=== PATIENT | female | born 1975 | race Caucasian/White ===

== ENCOUNTER 2016-07-04 15:03 | Inpatient (IN) | payer OTHER ==
[~2016-07-04] VITALS: Ht 168 cm; Wt 79.9 kg
[2016-07-04] MEDS ORDERED: PREN1TAB26 PO (15:09)
[2016-07-04 18:44] VITALS: BP 113/61
[2016-07-04] MEDS ORDERED: INFLUENZA VIRUS VACCINE QVS 2016-17 (3YR+)/PF 60 MCG/0.5 ML SYRINGE IM ONE (19:00)
[2016-07-04] MEDS ORDERED: OXYTOCIN 30 UNITS/LACT RINGERS 500 ML IV PRN (19:06)
[2016-07-04] MEDS ORDERED: RINGERS SOLUTION,LACTATED 1,000 ML IV PRN (19:06)
[2016-07-04] MEDS ORDERED: OXYTOCIN 30 UNITS/LACT RINGERS 500 ML IV ONE (19:06)
[2016-07-04] MEDS ORDERED: FentaNYL CITRATE-PF 100 MCG/2 ML VIAL IVP PRN (19:15)
[2016-07-04] MEDS ORDERED: CITRIC ACID/SODIUM CITRATE 30 ML SOLUTION UDCUP PO PRN (19:15)
[2016-07-04] MEDS ORDERED: METOCLOPRAMIDE HCL 5 MG/ML 2 ML VIAL IVP PRN (19:15)
[2016-07-04] MEDS: RINGERS SOLUTION,LACTATED 1,000 ML IV SCH ×4 (19:23→23:23)
[2016-07-04 19:58] LABS: BASOPHILS % (AUTO) 0.2 % (0.0-2.0); EOSINOPHILS % (AUTO) 0.2 % (1.0-6.0); HEMATOCRIT 33.4 % (36-46); LYMPHOCYTES # (AUTO) 1.8 K/uL (1.0-4.8); LYMPHOCYTES % (AUTO) 23.5 % (22.0-44.0); MEAN CORPUSCULAR HEMOGLOBIN 27.8 pg (26.0-34.0); MEAN CORPUSCULAR HGB CONC 32.9 G/dL (31.0-37.0); MEAN CORPUSCULAR VOLUME 84 fL (80-100); MONOCYTES # (AUTO) 0.5 K/uL (0.1-1.0); MONOCYTES % (AUTO) 5.9 % (2.0-9.0); NEUTROPHILS # (AUTO) 5.4 K/uL (1.8-7.7); NEUTROPHILS % (AUTO) 70.2 % (40.0-70.0); RED BLOOD CELL COUNT(AUTO) 3.95 MIL/uL (4.00-5.20); RED CELL DISTRIBUTION WIDTH 13.9 % (11.5-14.5); WHITE BLOOD COUNT (AUTO) 7.7 K/uL (4.5-11.0)
[2016-07-04] MEDS ORDERED: LIDOCAINE HCL/PF 2% 5 ML VIAL ONE (20:19)
[2016-07-04] MEDS ORDERED: FentaNYL/BUPIV 0.125%/NS/PF 200 ML ED ONE (20:19)
[2016-07-04] MEDS: OXYGEN THERAPY IH SCH (21:40)
[2016-07-05] MEDS ORDERED: FentaNYL/BUPIV 0.125%/NS/PF 200 ML ED PRN (02:23)
[2016-07-05] MEDS ORDERED: ONDANSETRON HCL 4 MG/2 ML VIAL IVP PRN (02:30)
[2016-07-05] MEDS ORDERED: DiphenhydrAMINE HCL 50 MG/ML VIAL IVP PRN (02:30)
[2016-07-05] MEDS ORDERED: NALBUPHINE HCL 10 MG/ML VIAL IVP PRN (02:30)
[2016-07-05] MEDS ORDERED: PROMETHAZINE HCL 25 MG/ML VIAL IM PRN (02:30)
[2016-07-05] MEDS ORDERED: RINGERS SOLUTION,LACTATED 1,000 ML IV ONE (04:05)
[2016-07-05] MEDS ORDERED: GLYCERIN/WITCH HAZEL LEAF 40 PADS JAR TP PRN (04:15)
[2016-07-05] MEDS ORDERED: BENZOCAINE 20%/MENTHOL 56 GM SPRAY CANISTER TP PRN (04:15)
[2016-07-05] MEDS ORDERED: OxyCODONE HCL/ACETAMINOPHEN 5-325 MG TABLET PO PRN ×2 (04:15)
[2016-07-05] MEDS ORDERED: LANOLIN 7 GM OINTMENT TP PRN (04:15)
[2016-07-05] MEDS ORDERED: MEASLES/MUMPS/RUBELLA VACCINE, LIVE 0.5 ML/VIAL SQ ONE (04:15)
[2016-07-05] MEDS: IBUPROFEN 600 MG TABLET PO PRN ×2 (05:20→13:27)
[2016-07-05] MEDS: OXYGEN THERAPY IH SCH (08:00)
[2016-07-05] MEDS: MAGNESIUM HYDROXIDE SUSPENSION 30 ML UDCUP PO SCH ×2 (08:55→21:00)
[2016-07-06] MEDS: IBUPROFEN 600 MG TABLET PO PRN (00:02)
[2016-07-06] MEDS: OXYGEN THERAPY IH SCH (08:00)
[2016-07-06] MEDS ORDERED: IBUP-2070 PO (08:32)
[2016-07-06] MEDS ORDERED: DSS100 PO (08:34)
[2016-07-06] MEDS: MAGNESIUM HYDROXIDE SUSPENSION 30 ML UDCUP PO SCH (09:00)
== END 2016-07-06 10:30 | disposition home or self-care (01) | DRG 775 ==
LOC: OBSVTOIN 15:03 → 4S 15:03
PROVIDERS: ADMIT Obstetrics & Gynecology; ATTEND Obstetrics & Gynecology
PROC: 10E0XZZ Delivery of Products of Conception, External Approach (ICD-10-PCS; principal; 2016-07-05)
PROC: 3E0S3CZ (ICD-10-PCS; 2016-07-05)
PROC: 00HU33Z Insertion of Infusion Device into Spinal Canal, Percutaneous Approach (ICD-10-PCS; 2016-07-05)
PROC: 3E0234Z Introduction of Serum, Toxoid and Vaccine into Muscle, Percutaneous Approach (ICD-10-PCS; 2016-07-05)
DX: O69.81X0 Labor and delivery complicated by cord around neck, without compression, not applicable or unspecified (principal); O63.9 Long labor, unspecified; O09.523 Supervision of elderly multigravida, third trimester; O76 Abnormality in fetal heart rate and rhythm complicating labor and delivery; O42.92 Full-term premature rupture of membranes, unspecified as to length of time between rupture and onset of labor; Z3A.38 38 weeks gestation of pregnancy; Z37.0 Single live birth; Z23 Encounter for immunization
CPT/HCPCS: 86850; 86900; 86901; 87210; 89060; 90471; J2590; J3490; J7120